=== PATIENT | female | born 1965 ===

== ENCOUNTER → 2016-10-24 17:50 | Emergency (ER) | payer MEDICARE, OTHER ==
--- NOTE | ~2016-10-24 | EKG ---
PATIENT: BARRY MACIAS UNIT #: [id number] Ventricular Rate: 83 BPM Atrial Rate: 83 BPM P-R Interval: 142 ms QRS Duration: 100 ms Q-T Interval: 448 ms QTC Calculation(Bezet): 526 ms P Ulmer: 64 degrees Calculated R Ulmer: 56 degrees Calculated T Ulmer: 24 degrees Diagnosis Line: Normal sinus rhythm Diagnosis Line: Possible Left atrial enlargement Diagnosis Line: Prolonged QT Diagnosis Line: Abnormal ECG Diagnosis Line: When compared with ECG of 24-OCT-2016 15:17, Diagnosis Line: (unconfirmed) Diagnosis Line: ST no longer depressed in Anterolateral leads Diagnosis Line: Nonspecific T wave abnormality no longer evident Diagnosis Line: in Lateral leads Diagnosis Line: QT has lengthened Diagnosis Line: Confirmed by RICKIE LANDRY MD ([id number]) on 10/25/2016 Diagnosis Line: 7:05:45 AM INTERPRETING MD: GRIS LYNCH
--- NOTE | ~2016-10-24 | EKG ---
PATIENT: BARRY MACIAS UNIT #: [id number] Ventricular Rate: 106 BPM Atrial Rate: 106 BPM P-R Interval: 182 ms QRS Duration: 94 ms Q-T Interval: 336 ms QTC Calculation(Bezet): 446 ms P Ringgold: 89 degrees Calculated R Ringgold: 86 degrees Calculated T Ringgold: -5 degrees Diagnosis Line: Sinus tachycardia Diagnosis Line: Right atrial enlargement Diagnosis Line: Nonspecific ST and T wave abnormality Diagnosis Line: Abnormal ECG Diagnosis Line: When compared with ECG of 06-JUN-2013 13:16, Diagnosis Line: (unconfirmed) Diagnosis Line: Non-specific change in ST segment in Inferior Diagnosis Line: leads Diagnosis Line: ST now depressed in Anterolateral leads Diagnosis Line: Confirmed by RICKIE LANDRY MD ([id number]) on 10/25/2016 Diagnosis Line: 7:04:45 AM INTERPRETING MD: GRIS LYNCH
--- NOTE | ~2016-10-24 | CR72 ---
[facility] A Service of [facility] RADIOLOGY TEXT RESULTS PATIENT: ENMA CINTRON LOCATION: [facility] : 61 UNIT #: [id number] AGE: [address]: Molly Lake MD SEX: F ORDER DR: [id number] [facility] [address] [place], [place] [address] [id number] E MR#: [id number] Acc #: [id number] NAME: ENMA CINTRON : 1965 SEX: F STUDY DATE/TIME: 10/24/2016 15:37 UNIT: [facility] ROOM: STUDY DESCRIPTION: CR Chest Single View Portable Attending Physician: Molly Lake M.D. Ordering Physician: Molly Lake M.D. Primary Care Physician: Primary Care Physician No MEDICAL IMAGING REPORT This report is preliminary unless electronic signature is present EXAM Portable chest, 10/24/2016 HISTORY Full arrest, needle decompression post pneumothorax. FINDINGS AP portable view of the chest demonstrates a large right-sided pneumothorax with expansion of the right thorax compatible with a tension pneumothorax. There is shift of the mediastinal structures to left of midline. Endotracheal tube and nasogastric tube appear in expected position. Left lung remains clear. Heart and mediastinum unremarkable except for shift to the left of midline. Chronic changes noted in the right shoulder suggest possible chronic dislocation and degenerative arthropathy. Please note, subsequent radiograph on line at 1559 hours demonstrates a large bore chest tube in place with re-expansion of the right lung and loss of mediastinal shift. Overall findings were compatible with a tension pneumothorax. Dictated by... Gayatri Kim M.D. THIS IS AN ELECTRONICALLY VERIFIED REPORT Gayatri Kim M.D. at 10/25/2016 5:02 PM AUDELIA/ada TD: 10/25/2016 00:50 JOB #: [id number] MEDICAL IMAGING REPORT [facility] A Service of [facility] RADIOLOGY TEXT RESULTS PATIENT: EN[facility] CINTRON [id number] 61 UNIT #: [id number] AGE: [address]: Molly Lake MD SEX: F ORDER DR: FRANCISCO
--- NOTE | ~2016-10-24 | CR72 ---
[facility] A Service of [facility] RADIOLOGY TEXT RESULTS PATIENT: ENMA CINTRON LOCATION: [facility] : 61 UNIT #: [id number] AGE: [address]: Molly Lake MD SEX: F ORDER DR: [id number] [facility] [address] [place], [place] [address] [id number] E MR#: [id number] Acc #: [id number] NAME: ENMA CINTRON : 1965 SEX: F STUDY DATE/TIME: 10/24/2016 16:26 UNIT: [facility] ROOM: STUDY DESCRIPTION: CR Chest Single View Portable Attending Physician: Molly Lake M.D. Ordering Physician: Molly Lake M.D. Primary Care Physician: Primary Care Physician No MEDICAL IMAGING REPORT This report is preliminary unless electronic signature is present EXAM Portable chest, 10/24/2016 HISTORY Post line placement, cardiac arrest. COMPARISON 10/24/2016 at 1559 hours. FINDINGS AP portable view of the chest demonstrates endotracheal tube in place about 2 cm above the doug. Nasogastric tube courses through the mediastinum with its distal tip well below the GE junction. There is a large bore chest tube in place from a right mid approach with the distal tip directed towards the right lung base. The angulation of the distal chest tube has been corrected. There is increasing and primarily new right upper lobe parenchymal opacity could represent focal airspace disease possibly representing aspiration pneumonia or reactive pulmonary edema from re-expansion of the patient's pneumothorax. There is also extensive interstitial prominence throughout both lungs could represent some background interstitial edema. Heart size within normal limits. No recurrent pneumothorax. A small amount of subcutaneous emphysema noted over the right chest. Chronic changes of right shoulder suggest moderately advanced glenohumeral joint arthritis. There has been placement of a right subclavian approach central line with the line extending across the midline from left to right, probably within the brachiocephalic vein and now terminating near the left subclavian vein. This does appear to represent central positioning but may be less than optimal. Dictated by... [facility] A Service of [facility] RADIOLOGY TEXT RESULTS PATIENT: ENMA CINTRON LOCATION: [facility] : 61 UNIT #: [id number] AGE: [address]: Molly Lake MD SEX: F ORDER DR: Gayatri Kim M.D. THIS IS AN ELECTRONICALLY VERIFIED REPORT Gayatri Kim M.D. at 10/25/2016 5:02 PM AUDELIA/ada TD: 10/25/2016 02:41 JOB #: [id number] MEDICAL IMAGING REPORT COPY
--- NOTE | ~2016-10-24 | CR72 ---
[facility] A Service of [facility] RADIOLOGY TEXT RESULTS PATIENT: ENMA CINTRON LOCATION: [facility] : 61 UNIT #: [id number] AGE: [address]: Molly Lake MD SEX: F ORDER DR: [id number] [facility] [address] [place], [place] [address] [id number] E MR#: [id number] Acc #: [id number] NAME: ENMA CINTRON : 1965 SEX: F STUDY DATE/TIME: 10/24/2016 15:59 UNIT: [facility] ROOM: STUDY DESCRIPTION: CR Chest Single View Portable Attending Physician: Molly Lake M.D. Ordering Physician: Molly Lake M.D. MEDICAL IMAGING REPORT This report is preliminary unless electronic signature is present EXAM Portable chest, 10/24/2016 HISTORY Intubation and chest tube placement. FINDINGS Right chest tube has been placed since earlier exam today at 1537 hours and the large right pneumothorax has been evacuated. No residual mediastinal shift. There is mild multifocal linear atelectasis in the right lung. ETT tip is approximately cm above the doug. NG tube extends into the stomach. Visualized left lung is clear. The lateral left base is not included on the exam. New small amount of soft tissue emphysema over the right axilla. IMPRESSION 1. Interval evacuation of right pneumothorax following right chest tube placement. The right chest tube is curled over the right lower lung terminating in the right base. 2. ETT tip approximately 3 cm above the doug. 3. Mild multifocal linear atelectasis in the right lung. The visualized left lung is clear but the lateral left base is excluded. Dictated by... Kamlesh Swenson M.D. THIS IS AN ELECTRONICALLY VERIFIED REPORT Kamlesh Swenson M.D. at 10/25/2016 3:06 PM PARAG/ada TD: 10/25/2016 01:57 [facility] A Service of [facility] RADIOLOGY TEXT RESULTS PATIENT: ENMA CINTRON LOCATION: [facility] : 61 UNIT #: [id number] AGE: [address]: Molly Lake MD SEX: F ORDER DR: SIOBHAN #: [id number] MEDICAL IMAGING REPORT COPY
--- NOTE | ~2016-10-24 | EKG ---
PATIENT: BARRY MACIAS UNIT #: [id number] Ventricular Rate: 79 BPM Atrial Rate: 79 BPM P-R Interval: 144 ms QRS Duration: 98 ms Q-T Interval: 472 ms QTC Calculation(Bezet): 541 ms P Dustin: 53 degrees Calculated R Dustin: 56 degrees Calculated T Dustin: 36 degrees Diagnosis Line: Normal sinus rhythm Diagnosis Line: Nonspecific ST abnormality Diagnosis Line: Prolonged QT Diagnosis Line: Abnormal ECG Diagnosis Line: When compared with ECG of 24-OCT-2016 16:09, Diagnosis Line: (unconfirmed) Diagnosis Line: No significant change was found Diagnosis Line: Confirmed by RICKIE LANDRY MD ([id number]) on 10/25/2016 Diagnosis Line: 7:06:06 AM INTERPRETING MD: GRIS LYNCH
[2016-10-24 16:23] LABS: ARTERIAL BLD GAS O2 SATURATION 64.6 % (90.0-100.0); ARTERIAL BLOOD GAS CARBOXY HB 4.1 %sat (0.0-9.0); ARTERIAL BLOOD GAS HCO3 20.3 mmol/L; ARTERIAL BLOOD GAS MET HB 0.8 %sat (0.0-2.0)
[2016-10-24 16:25] LABS: ARTERIAL BLOOD GAS ART SITE LEFT RADIAL; ARTERIAL BLOOD GAS DELIVERY VENT; ARTERIAL BLOOD GAS PCO2 68.4 mmHg (35.0-45.0); ARTERIAL BLOOD GAS PO2 46.7 mmHg (80.0-100); ARTERIAL BLOOD GAS VENT MODE A/C; ARTERIAL DRAW? YES
[2016-10-24 16:32] LABS: BASOPHIL# 0.1 X10e3 (0-0.3); BASOPHIL% 0.7 % (0-2.5); DIFF IND NO; EOSINOPHIL# 0.1 X10e3 (0-0.7); EOSINOPHIL% 0.9 % (0.0-7.0); HEMATOCRIT 42.9 % (35.0-45.0); HEMOGLOBIN 13.4 gm/dL (12.0-16.0); LYMPHOCYTE# 3.6 X10e3 (1.0-3.5); LYMPHOCYTE% 23.9 % (17.0-45.0); MEAN CELL VOLUME 93.4 FL (83-96); MEAN CORPUSCULAR HEMOGLOBIN 29.2 PG (28-34); MEAN CORPUSCULAR HGB CONC 31.2 g/dL (30-36); MEAN PLATELET VOLUME 8.9 FL (6.5-11.5); MONOCYTE# 0.8 X10e3 (0-1.0); MONOCYTE% 5.3 % (3.0-12.0); NEUTROPHIL# 10.3 X10e3 (1.5-7.1); NEUTROPHIL% 69.2 % (40-75); PLATELET COUNT 190 X10e3 (140-420); RED CELL DISTRIBUTION WIDTH 17.2 % (11.0-15.5); WHITE BLOOD COUNT 14.9 X10e3 (4.0-10.5)
[2016-10-24 16:44] LABS: INR 1.1; PARTIAL THROMBOPLASTIN TIME 31.9 SECONDS (23.5-31.3); PROTHROMBIN TIME (PATIENT) 11.2 SECONDS (9.6-11.5)
[2016-10-24 17:13] LABS: ALBUMIN SERUM 3.2 g/dL (3.5-5.0); ALKALINE PHOSPHATASE 88 U/L (32-92); ALT (SGPT) 28 U/L (10-40); AST (SGOT) 50 U/L (10-42); BILIRUBIN, DIRECT 0.1 mg/dL (0.0-0.2); BILIRUBIN,INDIRECT 0.5 mg/dL (0.0-0.9); BILIRUBIN,TOTAL 0.6 mg/dL (0.2-2.0); BLOOD UREA NITROGEN 16 mg/dL (9-23); BUN/CREATININE RATIO 17.77; CALCIUM SERUM 9.7 mg/dL (8.4-10.2); CARBON DIOXIDE 22 mmol/L (22-31); CHLORIDE 101 mmol/L (100-111); CPK (CREATINE PHOSPHOKINASE) 120 IU/L (26-140); CREATININE SERUM 0.9 mg/dL (0.6-1.4); GLOM FILT RATE Estimated ABOVE60 mL/min (>60); GLUCOSE FASTING 375 mg/dL (70-110); MAGNESIUM 2.4 mg/dL (1.6-3.0); POTASSIUM 3.9 mmol/L (3.5-5.1); PROTEIN TOTAL SERUM 6.4 g/dL (6.0-8.3); SODIUM 140 mmol/L (135-145)
[2016-10-24 17:14] LABS: ALCOHOL BLOOD <5 mg/dL (0)
[2016-10-24 17:19] LABS: POC - CKMB 5.7 ng/mL (0.0-7.9); POC - TROPONIN <0.05 ng/mL (<=0.05)
[~2016-10-24 17:50] MED LIST: BACTRIM DS TABL1 TA1 PO; ELIMITE60 GM TOP; LITHIUM PO; LOTRIMIN 1% CR30 GM EXT
[2016-10-25 09:40] LABS: ARTERIAL BLOOD GAS ALLEN TEST NORMAL
== END | disposition expired ==
LOC: CFTX 17:50
PROVIDERS: Emergency Medicine
CPT/HCPCS: 36556; 36600; 51702; 71010; 80048; 80076; 82550; 82553; 82803; 82947; 83735; 84484; 85025; 85610; 85730; 92950; 93005; 94002; 96374; 99291; 99292; G0480; J0171; J0282; J2690